=== PATIENT | female | born 1930 | race Caucasian/White ===

== ENCOUNTER 2021-07-30 11:24 | Emergency (ER) | payer MEDICARE, OTHER ==
[~2021-07-30] VITALS: Ht 152.4 cm; Wt 45.5 kg
[2021-07-30 11:36] VITALS: BP 192/80
[2021-07-30] MEDS ORDERED: NAPR-56 PO (14:48)
[2021-07-30] MEDS ORDERED: HYDROcodone/acetaminophen 5mg/325mg tablet PO ONE (14:50)
--- NOTE | 2021-07-30 14:55 | NUR ---
[facility] CALLED FOR TRANSPORT BACK HOME @ 1723.
--- NOTE | 2021-07-30 14:56 | NUR ---
30 MIN ETA FOR [facility].
== END 2021-07-30 15:00 | disposition home or self-care (01) ==
LOC: ER 11:25
DX: M25.551 Pain in right hip (principal); M16.11 Unilateral primary osteoarthritis, right hip; I10 Essential (primary) hypertension; Z79.899 Other long term (current) drug therapy
CPT/HCPCS: 73502; 99283

== ENCOUNTER 2021-08-01 13:36 | Emergency (ER) | payer MEDICARE, OTHER ==
[~2021-08-01] VITALS: Ht 152.4 cm; Wt 45.5 kg
[~2021-08-01 13:36] MED LIST: NAPR-56 PO
[2021-08-01 14:48] VITALS: BP 160/68
[2021-08-01 15:12] LABS: ALANINE AMINOTRANSFERASE 18 U/L (12-78); ALBUMIN 3.3 G/DL (3.4-5.0); ALBUMIN/GLOBULIN RATIO 1.1 (1.1-1.5); ALKALINE PHOSPHATASE 56 IU/L (46-116); ANION GAP 3 (8-16); ASPARTATE AMINO TRANSFERASE 11 U/L (10-37); BILIRUBIN,TOTAL 0.5 MG/DL (0.1-1.0); BLOOD UREA NITROGEN 18 MG/DL (7-18); BUN/CREATININE RATIO 20.2 (6.6-38.0); CALCIUM 9.2 MG/DL (8.5-10.1); CHLORIDE 104 MMOL/L (99-107); CREATININE 0.89 MG/DL (0.40-0.90); GLUCOSE 130 MG/DL (70-104); POTASSIUM 4.4 MMOL/L (3.5-5.1); SODIUM 139 MMOL/L (135-145); TOTAL CARBON DIOXIDE 31.8 MMOL/L (24-32); TOTAL PROTEIN 6.2 G/DL (6.4-8.2); eGFR 60 ML/MIN
[2021-08-01 15:18] LABS: ETHANOL < 0.010 GM/DL (0.0-0.010)
[2021-08-01 15:23] LABS: BASOPHILS % (AUTO) 0.6 % (0-1); EOSINOPHILS # (AUTO) 0.1 X10'3 (0-0.9); EOSINOPHILS % (AUTO) 1.1 % (0-6); HEMATOCRIT 40.4 % (35.0-45.0); HEMOGLOBIN 13.5 g/dl (12.0-16.0); LYMPHOCYTES # (AUTO) 1.6 X10'3 (1.1-4.8); LYMPHOCYTES % (AUTO) 20.7 % (21-51); MEAN CORPUSCULAR HEMOGLOBIN 31.3 PG (27.0-31.0); MEAN CORPUSCULAR HGB CONC 33.4 g/dL (33.0-36.5); MEAN CORPUSCULAR VOLUME 93.8 FL (78-98); MEAN PLATELET VOLUME 8.9 FL (7.4-10.4); MONOCYTES # (AUTO) 0.6 X10'3 (0-0.9); MONOCYTES % (AUTO) 7.7 % (2-12); NEUTROPHILS # (AUTO) 5.5 X10'3 (1.8-7.7); NEUTROPHILS % (AUTO) 69.9 % (42-75); PLATELET COUNT 223 X10'3 (140-440); RED CELL DISTRIBUTION WIDTH 13.5 % (11.5-14.5); WHITE BLOOD COUNT 7.8 X10'3 (4.5-11.0)
--- NOTE | 2021-08-01 16:31 | NUR ---
Patient ambulates to restroom using walker; gait steady.
== END 2021-08-01 17:35 | disposition home or self-care (01) ==
LOC: ER 13:36
DX: M25.551 Pain in right hip (principal); M25.561 Pain in right knee; M19.90 Unspecified osteoarthritis, unspecified site; I10 Essential (primary) hypertension; Z79.899 Other long term (current) drug therapy; R41.82 Altered mental status, unspecified; R41.3 Other amnesia
CPT/HCPCS: 36415; 70450; 71045; 72125; 73502; 73564; 80053; 80320; 85025; 85610; 86885; 86900; 86901; 93005; 99285